=== PATIENT | female | born 1955 | race Caucasian/White ===

== ENCOUNTER 2023-04-30 06:08 | Inpatient (IN) | payer MEDICARE, OTHER, SELFPAY ==
[2023-04-19 08:53] LABS: Hematocrit 39.6 % (37.0-47.0); Hemoglobin 13.7 g/dL (12.0-16.0); Mean Corp Hgb Conc. 34.6 g/dL (33.0-37.0); Mean Corpuscular Hgb 33.7 pg (27.0-31.0); Mean Corpuscular Volume 97.3 fL (81.0-99.0); Mean Platelet Volume 9.5 fL (7.4-10.4); Platelet Count 280 10^3/uL (130-400); Red Blood Cell Count 4.07 10^6/uL (4.20-5.40); Red Cell Dist. Width 12.5 % (11.5-14.5); White Blood Cell Count 4.9 10^3/uL (4.8-10.8)
[2023-04-19 09:19] LABS: ALT (SGPT) 26 U/L (0-35); AST (SGOT) 26 U/L (14-36); Albumin 3.8 g/dl (3.5-5.0); Alkaline Phosphatase 67 U/L (38-126); Blood Urea Nitrogen 23 mg/dl (7-17); Calcium 9.6 mg/dl (8.4-10.2); Carbon Dioxide 28 mmol/L (22-30); Chloride 103 mmol/L (98-107); Glucose 98 mg/dl (70-99); Potassium 4.4 mmol/L (3.5-5.1); Sodium 139 mmol/L (135-145); Total Protein 6.2 g/dl (6.3-8.2); eGFR > 60.00
[2023-04-19 09:32] LABS: APTT 24.5 Sec (23.4-35.0)
[2023-04-19 12:01] LABS: Glycohemoglobin (HgbA1c) 5.7 % (4.0-5.6)
[2023-04-19 13:25] VITALS: BMI 25.6
[2023-04-30] VITALS (12 sets, daily range): BP systolic 101–154; BP diastolic 56–85; BMI 25.6
[2023-04-30] MEDS: HEPARIN 5000 UNITS SC (06:27)
[2023-04-30] MEDS: TYLENOL 1000 MG PO (06:27)
[2023-04-30] MEDS: NORMOSOL-R 1000 IV ×3 (06:44→22:33)
--- NOTE | 2023-04-30 10:56 | W.IMMPOSTOP ---
Surgical Immed Post Op Note
-
Primary Surgeon: Edouard Ortiz MD
Assistants: NAS Castañeda & OBEY Rosario Do
Pre-op Diagnosis: Recurrent sigmoid diverticulitis and rectal polyp
Post-op Diagnosis: Same
Procedure Performed: Robotic sigmoid colectomy with intracorporeal anastomosis, transanal excision of rectal polyp
Anesthesia Type: GET
Specimen / Cultures: Sigmoid colon (suture is proximal); rectal polyp
Estimated Blood Loss: 15cc
Complications: None
Operative Findings: Chronic sigmoid diverticulitis
28mm EEA
Normal leak test
2cm benign-appearing polyp in the right anterior quadrant just above the dentate line
Patient's daughter updated via telephone.
[2023-04-30] MEDS: DILAUDID 0.5 MG IV (11:08)
[2023-04-30] MEDS: TORADOL 15 MG IV ×2 (11:32→18:33)
[2023-04-30] MEDS: DILAUDID 0.25 MG IV (11:50)
[2023-04-30] MEDS: TYLENOL 650 MG PO ×3 (12:52→20:05)
--- NOTE | 2023-04-30 14:05 | SUR.PHASEI ---
patient post op robotic sig in pacu , vss, medicated for pain with dilaudid, tylenol and toradol with relief, Dr Ortiz visited in pacu, reviewed OR case and plan of care. Daughter updated by phone, transfer to [address] [place] [address] when bed available. hand off
at bedside.
--- NOTE | 2023-04-30 16:19 | CM ---
Reviewed chart notes and spoke with the patient. Patient resides alone in a two story home. Patient reports no DME/VN/SNF in past. Patient anticipates being discharged to home when medically stable. CM continues to be available to patient/family
and is monitoring medical plan for needs at discharge.
Plan: Discharge to home when medically stable. No needs anticipated at this time.
[2023-04-30] MEDS: MELATONIN 5 MG PO (22:33)
[2023-05-01] MEDS: TORADOL 15 MG IV ×5 (00:21→23:42)
[2023-05-01] MEDS: TYLENOL 650 MG PO ×5 (00:22→23:42)
[2023-05-01 02:19] LABS: COVID-19 Antigen Negative (Negative)
[2023-05-01 03:30] VITALS: BP 129/56
[2023-05-01] MEDS: TYLENOL 325 MG PO (04:58)
[2023-05-01 07:10] LABS: % Basophils 0.2 % (0-2); % Immature Granulocytes 0.3 % (0-0.5); % Lymphocytes 18.7 % (20.5-51.1); % Neutrophils 73.8 % (42.2-75.2); Absolute Lymphocytes 2.3 10^3/uL (1.2-3.4); Absolute Monocytes 0.9 10^3/uL (0.1-0.6); Absolute Neutrophils 9.2 10^3/uL (1.4-6.5); Hematocrit 37.5 % (37.0-47.0); Hemoglobin 12.7 g/dL (12.0-16.0); Mean Corp Hgb Conc. 33.9 g/dL (33.0-37.0); Mean Corpuscular Hgb 33.3 pg (27.0-31.0); Mean Corpuscular Volume 98.4 fL (81.0-99.0); Nucleated Red Blood Cells % 0 %; Platelet Count 259 10^3/uL (130-400); Red Blood Cell Count 3.81 10^6/uL (4.20-5.40); Red Cell Dist. Width 12.8 % (11.5-14.5); White Blood Cell Count 12.5 10^3/uL (4.8-10.8)
[2023-05-01 07:21] LABS: Blood Urea Nitrogen 17 mg/dl (7-17); Calcium 8.8 mg/dl (8.4-10.2); Carbon Dioxide 26 mmol/L (22-30); Chloride 105 mmol/L (98-107); Estimated Creatinine Clearance 51 ml/min; Glucose 101 mg/dl (70-99); Potassium 4.6 mmol/L (3.5-5.1); Sodium 135 mmol/L (135-145); eGFR > 60.00
[2023-05-01 08:10] VITALS: BP 131/72
[2023-05-01] MEDS: TYLENOL PO ×2 (09:00→11:53)
[2023-05-01] MEDS: ENTEREG 12 MG PO ×2 (09:00→20:37)
[2023-05-01] MEDS: NORMOSOL-R 1000 IV ×2 (09:01→20:37)
--- NOTE | 2023-05-01 10:42 | W.PN.GS2 ---
Addendum entered and electronically signed by Douglas Ignacio MD 05/01/23 10:59:
Patient seen and examined with nurse practitioner.
Chief complaint is sneezing which started at 7 PM this past evening and has continued. She had some right shoulder discomfort prompting overnight EKG and subsequent chest x-ray both of which were unremarkable. States no preceding upper respiratory
illness symptoms preop. No allergies that she is aware of.
Passed flatus. No bowel movement. Postoperative pain controlled but sore with sneezing.
AFVSS
ABD: Soft, nondistended, mild tenderness at incision sites. Incision sites with glue dressing and some localized ecchymosis but no hematomas. No erythema. No drainage or open wounds.
A/P: POD 1 status post RAL sigmoidectomy
Clear liquid diet, continue IVs, awaiting further signs of GI recovery
Okay for Hughes removal
OOBTC/ambulate as tolerated
Original Note:
Today's Communication / Plan
-
Clear liquids
Assessment / Plan
-
68 yo female with a h/o diverticulitis now POD #1 Robotic sigmoid colectomy with intracorporeal anastomosis, transanal excision of rectal polyp
AFVSS
Labs stable
Sneezing/nasal congestion post op/?URI
+Flatus
--Start clear liquids
--D/C hughes
--IVF until tolerating PO intake
--Claritin/Saline nasal spray
--Analgesics Tylenol/Toradol scheduled and prn narcotics
--OOB/Ambulate
--Start Lovenox 40mg SQ VTE ppx
Subjective Data
-
Date of Service: May 01, 2023
Patient seen and examined at bedside with Dr. Ignacio. Denies n/v. Passing flatus. Sneezing with some nasal congestion since immediate post op period. Discomfort to right shoulder. Denies n/v. Denies cough.
Objective Data
-
Intake and Output
04/30/23 05/01/23 05/02/23
06:59 06:59 06:59
Intake Total 2029 / 2029
Output Total 3400 / 3400
Balance -1370 / -1370
Intake:
Oral fluids 530 / 530
IV fluids (Total) 1500 / 1500
normosol 300 / 300
Output:
Urine, Hughes 2750 / 2750
Urine, Voided 650 / 650
Vital Signs
Temp Pulse Resp BP Pulse Ox
97.9 F 62 18 131/72 97
05/01/23 08:10 05/01/23 08:10 05/01/23 08:10 05/01/23 08:10 05/01/23 08:10
Lab Results
05/01/23 06:31
05/01/23 06:31
Calcium 8.8 mg/dl (8.4-10.2) 05/01/23 06:31
Total Bilirubin 1.0 mg/dl (0.2-1.3) 04/19/23 07:45
AST 26 U/L (14-36) 04/19/23 07:45
ALT 26 U/L (0-35) 04/19/23 07:45
Alkaline Phosphatase 67 U/L (38-126) 04/19/23 07:45
Total Protein 6.2 g/dl (6.3-8.2) L 04/19/23 07:45
Albumin 3.8 g/dl (3.5-5.0) 04/19/23 07:45
Physical Exam
-
NAD
ABD soft, expected tenderness to incisions, ND
Incisions clear, dry, intact
[2023-05-01] MEDS: OCEAN, SALINE MIST 2 SPRAYS NASAL (11:43)
[2023-05-01] MEDS: CLARITIN 10 MG PO (11:43)
[2023-05-01 11:45] VITALS: BP 130/57
--- NOTE | 2023-05-01 12:01 | PTCARENOTE ---
Zepeda cath removed per order w/o difficulty. Zepeda drained 200 cl yellow urine upon removal. Instructed pt to drink some fluids and to inform nursing staff when she feels the urge to urinate. Pt verbalized understanding and states she will call.
[2023-05-01 15:45] VITALS: BP 138/65
[2023-05-01] MEDS: LOVENOX 40 MG SC (18:48)
[2023-05-01] MEDS: MELATONIN 5 MG PO (20:37)
[2023-05-01 23:25] VITALS: BP 105/66
[2023-05-02] MEDS: TYLENOL PO (04:20)
[2023-05-02] MEDS: TORADOL 15 MG IV ×4 (05:41→23:28)
[2023-05-02 06:02] LABS: Hemoglobin 12.1 g/dL (12.0-16.0); Mean Corp Hgb Conc. 34.6 g/dL (33.0-37.0); Mean Corpuscular Hgb 33.4 pg (27.0-31.0); Mean Corpuscular Volume 96.7 fL (81.0-99.0); Mean Platelet Volume 9.1 fL (7.4-10.4); Platelet Count 226 10^3/uL (130-400); Red Blood Cell Count 3.62 10^6/uL (4.20-5.40); Red Cell Dist. Width 12.9 % (11.5-14.5); White Blood Cell Count 9.1 10^3/uL (4.8-10.8)
[2023-05-02 06:24] LABS: Blood Urea Nitrogen 14 mg/dl (7-17); Calcium 8.9 mg/dl (8.4-10.2); Carbon Dioxide 30 mmol/L (22-30); Chloride 103 mmol/L (98-107); Estimated Creatinine Clearance 58 ml/min; Glucose 98 mg/dl (70-99); Potassium 4.1 mmol/L (3.5-5.1); Sodium 137 mmol/L (135-145); eGFR > 60.00
[2023-05-02] MEDS: NORMOSOL-R 1000 IV (06:40)
[2023-05-02 07:15] VITALS: BP 132/74
[2023-05-02] MEDS: ENTEREG 12 MG PO (09:00)
[2023-05-02] MEDS: TYLENOL 650 MG PO ×5 (09:00→23:28)
[2023-05-02] MEDS: CLARITIN 10 MG PO (09:00)
--- NOTE | 2023-05-02 09:40 | W.PN.GS2 ---
Today's Communication / Plan
-
`
Assessment / Plan
-
68 yo female with a h/o diverticulitis now POD #2 Robotic sigmoid colectomy with intracorporeal anastomosis, transanal excision of rectal polyp
AFVSS
Sneezing/nasal congestion post op - resolved
--LR diet
--Analgesics Tylenol/Toradol scheduled and prn narcotics
--OOB/Ambulate
--Start Lovenox 40mg SQ VTE ppx
possible d/c in PM if jesenia PO, continues to ambulate well, pain controlled and no nausea
Subjective Data
-
Date of Service: May 02, 2023
pt seen and examined
passing flatus and loose BMs initially with some blood
jesenia diet advancement
pain controlled
Objective Data
-
Intake and Output
05/01/23 05/02/23 05/03/23
06:59 06:59 06:59
Intake Total 2029 1148 / 1148
Output Total 3400 / 3400 450 / 450
Balance -1370 / -1370 698 / 698
Intake:
Oral fluids 530 / 530 1148 / 1148
IV fluids (Total) 1500 / 1500
normosol 300 / 300
Output:
Urine, Zepeda 2750 / 2750 200 / 200
Urine, Voided 650 / 650 250 / 250
Other:
Number of approximated MODERATE 3
amounts of urine
How many times incontinent 3
MODERATE amount urine
Number of unmeasured liquid
stools
Rectum 1
Vital Signs
Temp Pulse Resp BP Pulse Ox
97.5 F 52 14 132/74 98
05/02/23 07:15 05/02/23 07:15 05/02/23 07:15 05/02/23 07:15 05/02/23 07:15
Lab Results
05/02/23 05:31
05/02/23 05:31
Calcium 8.9 mg/dl (8.4-10.2) 05/02/23 05:31
Total Bilirubin 1.0 mg/dl (0.2-1.3) 04/19/23 07:45
AST 26 U/L (14-36) 04/19/23 07:45
ALT 26 U/L (0-35) 04/19/23 07:45
Alkaline Phosphatase 67 U/L (38-126) 04/19/23 07:45
Total Protein 6.2 g/dl (6.3-8.2) L 04/19/23 07:45
Albumin 3.8 g/dl (3.5-5.0) 04/19/23 07:45
Physical Exam
-
NAD AAOx3
ABD: soft, TTP at incision sites
incisions with glue dressing
some swelling RLQ but no palpable hematoma/seroma/hernia
[2023-05-02 15:09] VITALS: BP 111/51
[2023-05-02] MEDS: LOVENOX 40 MG SC (18:04)
[2023-05-02] MEDS: MELATONIN 5 MG PO (21:41)
[2023-05-02 23:00] VITALS: BP 125/59
[2023-05-03] MEDS: TYLENOL PO (05:02)
[2023-05-03] MEDS: TORADOL 15 MG IV (05:31)
[2023-05-03 06:24] LABS: Hemoglobin 12.6 g/dL (12.0-16.0); Mean Corpuscular Hgb 33.5 pg (27.0-31.0); Mean Corpuscular Volume 95.7 fL (81.0-99.0); Mean Platelet Volume 9.1 fL (7.4-10.4); Platelet Count 237 10^3/uL (130-400); Red Blood Cell Count 3.76 10^6/uL (4.20-5.40); Red Cell Dist. Width 12.4 % (11.5-14.5); White Blood Cell Count 6.4 10^3/uL (4.8-10.8)
[2023-05-03 06:51] LABS: Blood Urea Nitrogen 16 mg/dl (7-17); Carbon Dioxide 31 mmol/L (22-30); Chloride 101 mmol/L (98-107); Estimated Creatinine Clearance 51 ml/min; Glucose 98 mg/dl (70-99); Potassium 4.1 mmol/L (3.5-5.1); Sodium 137 mmol/L (135-145); eGFR > 60.00
[2023-05-03 07:00] VITALS: BP 140/73
[2023-05-03] MEDS: TYLENOL 650 MG PO (07:49)
[2023-05-03] MEDS: CLARITIN 10 MG PO (07:49)
--- NOTE | 2023-05-03 08:57 | W.PN.CRS1 ---
Today's Communication / Plan
-
Discharge
Assessment/Plan
-
POD# 3 Robotic sigmoid colectomy with intracorporeal anastomosis, transanal excision of rectal polyp
1. Vitals and labs normal.
2. Tolerating a low residue diet.
3. OR pathology pending.
4. On Lovenox for DVT prophylaxis. Teds and SCDs in place.
5. Okay for discharge today given bowel function and tolerating diet. Her pain is controlled. All discharge instructions discussed with patient including medication tibials and follow-up. All questions answered. Follow-up with Dr. Ortiz in 2
weeks.
Subjective Data
Procedure
04/30- Robotic sigmoid colectomy with intracorporeal anastomosis, transanal excision of rectal polyp
Subjective Data
Date of Service: May 03, 2023
Patient states she is feeling much better today. She is having bowel movements and flatus. Her pain is controlled. She has been out of bed. She is tolerating a diet. She states that she like to go home today.
Objective Data
-
Vital Signs
Temp Pulse Resp BP Pulse Ox
97.4 F 55 19 140/73 98
05/03/23 07:00 05/03/23 07:00 05/03/23 07:00 05/03/23 07:00 05/03/23 07:00
Intake & Output
05/02/23 05/03/23 05/04/23
06:59 06:59 06:59
Intake Total 1148 / 1148 1200 / 1200
Output Total 450 / 450
Balance 698 / 698 1200 / 1200
Intake:
Oral fluids 1148 / 1148 1200 / 1200
Output:
Urine, Zepeda 200 / 200
Urine, Voided 250 / 250
Other:
Number of approximated MODERATE 3 4
amounts of urine
Number of approximated LARGE 1
amounts of urine
How many times incontinent 3
MODERATE amount urine
Number of unmeasured liquid
stools
Rectum 1 2
Lab Results
05/03/23 05:17
05/03/23 05:17
Physical Exam
-
General: No Acute Distress and AOx3
Abdomen: Soft, Non Distended and Non Tender
Skin: Warm and Dry
Incision: Clear, Dry, Intact
--- NOTE | 2023-05-03 09:03 | W.DS.TRANS ---
DC Summary - Assisted Living Housekeeper
-
Discharge Instructions:
Sleep Apnea Risk Low
Discharge Diagnosis/Procedures Robotic sigmoid colectomy
Diet Low Fiber
Activity No strenuous activity
Additional Activity Do not lift more than 10lbs (gallon of milk)
Driving Restrictions Wait until comfortable twisting/off narcotics
Bathing Restrictions OK to Shower
Wound Care Ok to shower and wash your incisions gently with
soap and water. Do not scrub or pick off glue.
The glue will fall off on its own in 2-3 weeks.
Instructions: Low Fiber Diet
Stand-Alone Forms:
Changes to Home Medications: Yes
Discharge Medications:
DC Medications w/original date entered in [employer]
calcium carbonate 600 mg-vitamin D3 20 mcg (800 unit) chewable tablet (Caltrate 600 plus D) 2 tab PO DAILY Supplement 04/07/19
red yeast rice 600 mg tablet 1 tab PO DAILY Supplement 04/07/19
coenzyme Q10 100 mg capsule (Co Q-10) 200 mg PO BID Supplement 11/11/22
melatonin 5 mg tablet 5 mg PO HS #7 tabs 11/13/22
guar gum 2 tbsp PO DAILY Supplement 04/28/23
lactobacillus comb no.10 20 billion cell capsule (Probiotic) 20,000 mmu cells PO DAILY Supplement 04/28/23
omega 2-yrr-zyq-fish oil 1,200 mg (144 mg-216 mg) capsule (Fish Oil) 2 cap PO BID Supplement 04/28/23
red yeast rice 600 mg tablet 1,200 mg PO HS Supplement 04/28/23
acetaminophen 325 mg tablet 650 mg PO Q4HPRN PRN mild pain #1 tab 05/02/23
ibuprofen 200 mg tablet 400 - 600 mg PO Q6HPRN PRN moderate pain #1 tab 05/02/23
tramadol 50 mg tablet 50 mg PO Q6H PRN Pain #20 tabs 05/03/23
Home Medication Changes
acetaminophen 325 mg tablet 650 mg PO Q4HPRN PRN mild pain #1 tab 05/02/23
ibuprofen 200 mg tablet 400 - 600 mg PO Q6HPRN PRN moderate pain #1 tab 05/02/23
tramadol 50 mg tablet 50 mg PO Q6H PRN Pain #20 tabs 05/03/23
Pending Results: Yes
Additional Pending Results:
OR pathology
--- NOTE | 2023-05-03 10:02 | CM ---
Reviewed the chart notes and spoke with the patient at the bedside. IMM signed and placed on chart. The patient anticipates being discharged today to home with no needs being identified at this time. The patient's daughter will provide
transportation home. CM continues to be available to patient/family and is monitoring medical plan for needs at discharge.
Plan: Discharge to home today.
== END 2023-05-03 11:57 | disposition home or self-care (01) | DRG 330 ==
LOC: 2 SOUTH 06:08
PROVIDERS: Nurse Practitioner Family; Registered Nurse; ADMITTING PHYSICIAN Surgery; FAMILY PHYSICIAN Family Medicine
PROC: 0DJD8ZZ Inspection of Lower Intestinal Tract, Via Natural or Artificial Opening Endoscopic (ICD-10-PCS; 2023-04-30)
PROC: 0DTN4ZZ Resection of Sigmoid Colon, Percutaneous Endoscopic Approach (ICD-10-PCS; 2023-04-30)
PROC: 8E0W4CZ Robotic Assisted Procedure of Trunk Region, Percutaneous Endoscopic Approach (ICD-10-PCS; 2023-04-30)
PROC: 0D5P8ZZ Destruction of Rectum, Via Natural or Artificial Opening Endoscopic (ICD-10-PCS; 2023-04-30)
DX: K57.32 Diverticulitis of large intestine without perforation or abscess without bleeding (principal); D80.1 Nonfamilial hypogammaglobulinemia; K62.1 Rectal polyp; M85.80 Other specified disorders of bone density and structure, unspecified site; M19.90 Unspecified osteoarthritis, unspecified site; E04.1 Nontoxic single thyroid nodule; E83.110 Hereditary hemochromatosis; I34.0 Nonrheumatic mitral (valve) insufficiency; E78.5 Hyperlipidemia, unspecified; R76.9 Abnormal immunological finding in serum, unspecified; R79.89 Other specified abnormal findings of blood chemistry; R91.1 Solitary pulmonary nodule; R94.6 Abnormal results of thyroid function studies; Z11.52 Encounter for screening for COVID-19; Z83.3 Family history of diabetes mellitus; Z80.41 Family history of malignant neoplasm of ovary; Z82.49 Family history of ischemic heart disease and other diseases of the circulatory system; Z88.1 Allergy status to other antibiotic agents; Z88.2 Allergy status to sulfonamides
CPT/HCPCS: 88305; 88307; 36415; 71045; 80048; 80053; 83036; 85025; 85027; 85610; 85730; 86850; 86900; 86901; 87811; 93005; J1335

== ENCOUNTER 2024-06-09 11:53 | Emergency (ER) | payer MEDICARE, OTHER, SELFPAY ==
[2024-06-09 12:09] VITALS: BP 136/70
[2024-06-09 12:12] VITALS: BMI 25.8
[2024-06-09 12:33] LABS: % Basophils 0.5 % (0-2); % Eosinophils 1.7 % (0-6); % Immature Granulocytes 0.3 % (0-0.5); % Lymphocytes 26.2 % (20.5-51.1); % Neutrophils 65.3 % (42.2-75.2); Absolute Basophils 0.1 10^3/uL (0-0.2); Absolute Eosinophils 0.2 10^3/uL (0-0.7); Absolute Lymphocytes 2.4 10^3/uL (1.2-3.4); Absolute Monocytes 0.6 10^3/uL (0.1-0.6); Hematocrit 38.8 % (37.0-47.0); Hemoglobin 13.1 g/dL (12.0-16.0); Mean Corp Hgb Conc. 33.8 g/dL (33.0-37.0); Mean Corpuscular Hgb 33.1 pg (27.0-31.0); Mean Platelet Volume 9.2 fL (7.4-10.4); Nucleated Red Blood Cells % 0 %; Platelet Count 230 10^3/uL (130-400); Red Blood Cell Count 3.96 10^6/uL (4.20-5.40); Red Cell Dist. Width 12.8 % (11.5-14.5); White Blood Cell Count 9.2 10^3/uL (4.8-10.8)
[2024-06-09 12:50] LABS: ALT (SGPT) 29 U/L (0-35); AST (SGOT) 27 U/L (14-36); Albumin 3.9 g/dl (3.5-5.0); Alkaline Phosphatase 86 U/L (38-126); Blood Urea Nitrogen 21 mg/dl (7-17); Calcium 9.8 mg/dl (8.4-10.2); Carbon Dioxide 29 mmol/L (22-30); Chloride 104 mmol/L (98-107); Estimated Creatinine Clearance 41 ml/min; Glucose 111 mg/dl (70-99); Lipase 124 U/L (23-300); Potassium 4.4 mmol/L (3.5-5.1); Sodium 139 mmol/L (135-145); Total Bilirubin 0.8 mg/dl (0.2-1.3); Total Protein 6.4 g/dl (6.3-8.2); eGFR 54.06
--- NOTE | 2024-06-09 15:01 | ED.GENMED ---
History of Present Illness
General
Chief Complaint: Abdominal Pain
Source: patient
Exam Limitations: none
Time Seen by Provider: 06/09/24 14:14
Nursing documentation reviewed up to this point in time: agreed with
History of Present Illness
History of Present Illness:
69 y/o F with h/o diverticulitis s/p partial bowel resection last year dr. vera
here with 3 weeks change in stool - dec size, stringy and sometimes loose, feels like she cannot fully defecate; like she still has to go but can't
over the past 2 days she has had LLQ pain
nonradiating
went to PCP who sent her in for CT scan to R/O obstruction
p thas known kidney stone in the pole of L kidney
no urinary symptoms
denies fever, chills, nauesa, vomiting
has had some issues having diarrhea right after eating meal
she has not had any rectal bleeding
Past History
Past History
ED Past Medical History: Other (diverticulitis)
ED Past Surgical History: Bowel resection
Social History
Tobacco: Non-smoker
Personal:
Living: with family
Employment: Employed
Review of Systems
Review of Systems
Allergies reviewed?: Yes
All Other Systems: Not applicable
Phy Exam
Physical Exam
Physical Exam:
GENERAL: Alert , in no apparent distress
EYE: pupils equal and reactive
NECK: Supple
ENT: o/p clr, mmm.
CARDIAC: Regular rate and rhythm .
LUNGS: Clear breath sounds bilaterally, no acute respiratory distress, no wheezes/rales/rhonchi
ABDOMEN: Soft, mild distension mild left lower quadrant tenderness no guarding or rebound,, no cvat, normal bowel sounds
NEUROLOGICAL: Alert and oriented, no focal neuro deficits
SKIN: Warm and dry, skin intact.
MUSCULOSKELETAL: No edema, well perfused. neg corine's sign
PSYCH: Normal and appropriate interaction.
Course
Orders/Labs/Results
Orders:
Orders
06/09/24 12:18
Complete Blood Count/With Diff Urgent
Comprehensive Metabolic Panel Urgent
Lipase Urgent
06/09/24 15:00
CT Abd/pel W Iv And Oral Contr Urgent
Comment:
Reason For Exam: llq pain, h/o bowel resection, small BM, r/o obstr
Iohexol [Omnipaque] See Protocol PO NOW STA
06/09/24 15:08
Urinalysis Reflex To Culture Urgent
Date Specimen was Collected: 06/09/24
Time Specimen was Collected: 15:04
06/09/24 19:44
Ampicillin/Sulbactam 3 G [Unasyn] 3 gm 0.9% Sodium Chloride 100 ml [Nss] 100 ml IV NOW
06/09/24 19:51
Ampicillin/Sulbactam 3 G [Unasyn] 3 gm 0.9% Sodium Chloride 100 ml [Nss] 100 ml IV NOW
Abnormal Lab Results
06/09/24
12:18
RBC 3.96 L 10^6/uL
(4.20-5.40)
MCH 33.1 H pg
(27.0-31.0)
BUN 21 H mg/dl
(7-17)
Creatinine 1.1 H mg/dL
(0.6-1.0)
Glucose 111 H mg/dl
(70-99)
06/09/24 12:18
06/09/24 12:18
Vital Signs
Initial and Last Documented VS:
Initial Vital Signs
Temp Pulse Resp BP Pulse Ox
36.9 C 60 16 136/70 98
06/09/24 12:09 06/09/24 12:09 06/09/24 12:09 06/09/24 12:09 06/09/24 12:09
Last Documented Vital Signs
Temp Pulse Resp BP Pulse Ox
36.9 C 63 16 128/73 99
06/09/24 12:09 06/09/24 15:16 06/09/24 12:09 06/09/24 15:16 06/09/24 15:16
MDM/Problems Addressed
Differential Diagnosis Includes:
divertic, perfortaion, cancer
MDM/Problems Addressed:
69 y/o F h/o diverticular perforation, s/p partial resection last year
her ewith upper/left abd pain x 2 days
has had some stool chagnes x 3 weeks, stringly, less stool volume
had colnosocopy > 1 year ago prior to her resection
no fever/chills
vomiting
well appearing
mild tenderness left abfdomen
sent by PCP
no guaridng
wbc normal
ct shows mild acute transverse colon diverticulits
she has been treate with augmentin before; will give dose of unasyn here
does not do well with FQ, had tendinopathy
ED Attending Note
-
Portions of this chart may have been created with voice recognition software.� Occasional wrong word or��sound alike� substitutions may have occurred due to the inherent limitations of voice recognition software.
Discharge Plan
Departure
Prescriptions:
No Action
red yeast rice 600 MG tablet
1 tab PO DAILY
Caltrate 600 plus D 1 EACH tablet,chewable
2 tab PO DAILY
coenzyme Q10 [Co Q-10] 100 mg Capsule
200 mg PO BID
melatonin 5 mg Tablet
5 mg PO HS Qty: 7 0RF
omega 9-cun-vng-fish oil [Fish Oil] 1,200 (144-216) mg Capsule
2 cap PO BID
Rx Instructions:
2400 AM and 2400 PM
red yeast rice 600 mg Tablet
1,200 mg PO HS
Probiotic 20 billion cell Capsule
20,000 mmu cells PO DAILY
guar gum Packet
2 tbsp PO DAILY
Rx Instructions:
2 tsp daily
acetaminophen [acetaminophen] 325 mg tablet
650 mg PO Q4HPRN PRN (Reason: mild pain) Qty: 1 0RF
ibuprofen 200 mg tablet
400 - 600 mg PO Q6HPRN PRN (Reason: moderate pain) Qty: 1 0RF
tramadol 50 mg tablet
50 mg PO Q6H PRN (Reason: Pain) Qty: 20 0RF
Referrals:
Everardo Rodarte DO [Family Provider] -
Interventions
Interventions:
*Risk Screen - Suicide Last Done: 06/09/24 12:09
*General Assessment Last Done: 06/09/24 15:07
*Neglect/Abuse Screening Last Done: 06/09/24 12:09
*ED- Fall Risk Assessment Last Done: 06/09/24 14:13
*ED COVID-19 Vaccine History Last Done: 06/09/24 14:13
FZ-Snwigl-Anptenrrar Assessment Last Done: 06/09/24 15:05
Discharge Date and Time
Print Language: ANGUILLAN
[2024-06-09] MEDS: OMNIPAQUE 50 ML PO (15:11)
[2024-06-09 15:16] VITALS: BP 128/73
[2024-06-09 15:32] LABS: Urine Albumin Negative (Neg - Trace); Urine Bilirubin Negative (Negative); Urine Character Clear (Clear); Urine Color Yellow; Urine Glucose Negative (Negative); Urine Ketone Negative (Negative); Urine Leukocyte Negative (Negative); Urine Nitrite Negative (Negative); Urine Occult Blood Negative (Negative); Urine Specific Gravity 1.015 (<1.030); Urine Urobilinogen Negative (Neg - 1+)
[2024-06-09] MEDS: UNASYN IV (20:11)
[2024-06-09 20:55] VITALS: BP 137/83
== END 2024-06-09 21:07 | disposition home or self-care (01) ==
LOC: EMR 11:53
PROVIDERS: Emergency Medicine; Physician Assistant; EMERGENCY PHYSICIAN Emergency Medicine; FAMILY PHYSICIAN Family Medicine
DX: K57.92 Diverticulitis of intestine, part unspecified, without perforation or abscess without bleeding (principal)
CPT/HCPCS: 99284; 96365; 74177; 80053; 81003; 83690; 85025; Q9967

== ENCOUNTER 2024-08-08 15:24 | Emergency (ER) | payer MEDICARE, OTHER, SELFPAY ==
[2024-08-08 15:26] VITALS: BP 148/108
[2024-08-08 16:46] VITALS: BMI 27.3
--- NOTE | 2024-08-08 17:06 | ED.GENMED ---
History of Present Illness
General
Chief Complaint: Musculo-Skeletal Complaint
Source: patient
Exam Limitations: none
Time Seen by Provider: 08/08/24 17:00
Nursing documentation reviewed up to this point in time: agreed with
History of Present Illness
History of Present Illness:
Patient is a 69-year-old female who presents to the ER for evaluation. Several days ago she started with pain in her left thigh. She reports that she noticed that when she stood up her left leg gave out and she felt a deep pain shooting in her
thigh. Intermittently she has had symptoms for the past several days. She is very active and played pickle ball yesterday and had no symptoms however today reports she tried to stand out of a car felt sudden shooting pain in her thigh and her left
leg gave out.
She has mild discomfort in her low back. She denies any bowel or bladder incontinence. Denies any numbness tingling to left leg. She denies any fever chills redness
She again is very active but denies any injury. She denies any leg swelling. Denies trauma. No prior history of DVT PE.
Past History
Past History
ED Past Medical History: Other (diverticulitis)
ED Past Surgical History: Bowel resection
Social History
Tobacco: Non-smoker
Personal:
Living: with family
Employment: Employed
Review of Systems
Review of Systems
Allergies reviewed?: Yes
All Other Systems: ROS reviewed and negative except as documented in HPI and ROS
Constitutional: Reports no symptoms; Denies fever, fatigue or chills
Respiratory: Reports no symptoms
Cardiac: Reports no symptoms
ABD/GI: Reports no symptoms
Musculoskeletal: Reports other (left thigh pain )
Skin: Reports no symptoms
Neurological: Reports no symptoms
Psychiatric: Reports no symptoms
Phy Exam
General Physical Exam
General Presentation: no apparent distress
General age: appears stated age
General Skin: warm and dry
General Habitus: normal
General Mental: alert
General Hydration: appears well hydrated
Neurological Exam
Neurological Exam: alert and oriented x3
Musculoskeletal Exam
Musculoskeletal Exam: full ROM (No erythema or swelling on exam) and other (Normal inspection to left lower extremity no obvious swelling nontender to palpation to thigh and lower leg full internal/external rotation of hip, normal dorsiflexion
plantarflexion)
Skin Exam
Skin Exam: normal color and warm/dry
Psychiatric Exam
Psychiatric Exam: normal mood/affect
Course
Orders/Labs/Results
Orders:
Orders
08/08/24 17:15
Dexamethasone Pf [Decadron] 10 mg PO NOW STA
08/08/24 17:17
Femur, Left 2 View [CR Femur - Left Min 2 Vw] Urgent
Comment:
Reason For Exam: pain
Hip, Left 2-3 Views [CR Hip - LT w/wo Pel 2-3 Vw*] Urgent
Comment:
Reason For Exam: pain
Include a pelvis x-ray?: Yes
08/08/24 18:04
Vital Signs- Treatment ONCE
Frequency: Once
08/08/24 18:10
Venous Doppler Lwr Ext Left [US Periph Venous LOWER Ext LT] Urgent
Comment:
Reason For Exam: pain left thigh
Vital Signs
Initial and Last Documented VS:
Initial Vital Signs
Temp Pulse Resp BP Pulse Ox
97.1 F 72 18 148/108 99
08/08/24 15:26 08/08/24 15:26 08/08/24 15:26 08/08/24 15:26 08/08/24 15:26
Last Documented Vital Signs
Temp Pulse Resp BP Pulse Ox
97.1 F 82 16 139/70 98
08/08/24 15:26 08/08/24 18:09 08/08/24 18:09 08/08/24 18:09 05/27/25 18:09
MDM/Problems Addressed
Differential Diagnosis Includes:
Not limited to radicular pain, sciatica less likely DVT less likely infection
MDM/Problems Addressed:
Symptoms are consistent with likely sciatica versus radicular pain. There is no evidence of infection on exam no obvious swelling redness. She denies any recent fever chills or injury. She is afebrile here no acute distress and well-appearing.
She describes a sharp shooting pain in her thigh which is intermittently however reports it actually improved while playing pickle ball yesterday. Her x-rays are negative. Ultrasound was done and negative. Will treat for radicular pain with close
outpatient PCP patient was given 1 dose of steroids here in the ER and a steroid pack was sent to pharmacy
*Critical Care Note
Total Time (30-74mins, 75-104mins- exclusive of procedures): Not Applicable
ED Attending Note
-
Portions of this chart may have been created with voice recognition software.� Occasional wrong word or��sound alike� substitutions may have occurred due to the inherent limitations of voice recognition software.
Discharge Plan
Departure
Patient Disposition: Home (Routine Discharge)
Date of Disposition: 08/08/24
Time of Disposition: 18:04
Patient with high blood pressure during this ER visit?: Yes
Condition: Fair
Covid-19: Not Applicable
Discharge Problem:
Sciatica
Instructions: Sciatica - ED discharge instructions, BLOOD PRESSURE
Prescriptions:
New
prednisone 10 mg Tablet
See Rx Instructions .ROUTE .COMPLEX Qty: 30 0RF
Rx Instructions:
Take By Mouth:
40 mg daily x3 days, 30 mg daily x3 days,
20 mg daily x3 days, 10 mg daily x3 days.
No Action
red yeast rice 600 MG tablet
1 tab PO DAILY
Caltrate 600 plus D 1 EACH tablet,chewable
2 tab PO DAILY
coenzyme Q10 [Co Q-10] 100 mg Capsule
200 mg PO BID
melatonin 5 mg Tablet
5 mg PO HS Qty: 7 0RF
omega 0-faq-sym-fish oil [Fish Oil] 1,200 (144-216) mg Capsule
2 cap PO BID
Rx Instructions:
2400 AM and 2400 PM
red yeast rice 600 mg Tablet
1,200 mg PO HS
Probiotic 20 billion cell Capsule
20,000 mmu cells PO DAILY
guar gum Packet
2 tbsp PO DAILY
Rx Instructions:
2 tsp daily
acetaminophen [acetaminophen] 325 mg tablet
650 mg PO Q4HPRN PRN (Reason: mild pain) Qty: 1 0RF
ibuprofen 200 mg tablet
400 - 600 mg PO Q6HPRN PRN (Reason: moderate pain) Qty: 1 0RF
tramadol 50 mg tablet
50 mg PO Q6H PRN (Reason: Pain) Qty: 20 0RF
amoxicillin-pot clavulanate 875-125 mg tablet
1 tab PO Q8H Qty: 21 0RF
Referrals:
Everardo Rodarte DO [Family Provider] -
Activity Restrictions/Additional Instructions:
As discussed symptoms are likely radicular/nerve/sciatica pain. Your x-rays were negative.
Start steroids tomorrow. You were given the first dose here in the ER.
Follow-up with family doctor in the next 2 days for reevaluation. Return if any worsening of symptoms including increased pain swelling fevers or any further concerns.
Interventions
Interventions:
*Risk Screen - Suicide Last Done: 08/08/24 15:27
*General Assessment Last Done: 08/08/24 15:27
*Neglect/Abuse Screening Last Done: 08/08/24 15:27
*ED COVID-19 Vaccine History Last Done: 08/08/24 15:27
*Nursing Disposition Last Done: 08/08/24 18:44
ED-Musculoskeletal Assessment Last Done: 08/08/24 16:46
Discharge Date and Time
Print Language: PUERTO RICAN
[2024-08-08] MEDS: DECADRON 10 MG PO (17:22)
[2024-08-08 18:09] VITALS: BP 139/70
== END 2024-08-08 18:51 | disposition home or self-care (01) ==
LOC: EMR 15:24
PROVIDERS: EMERGENCY PHYSICIAN Emergency Medicine; FAMILY PHYSICIAN Family Medicine
DX: M54.32 Sciatica, left side (principal); M79.652 Pain in left thigh
CPT/HCPCS: 99284; 73502; 73552; 93971